=== PATIENT | female | born 1985 | race Caucasian/White ===

== ENCOUNTER → 2016-06-28 | Outpatient (CLI) | payer BC ==
--- NOTE | 2016-06-28 14:52 | MAMMOGRAPHY REPORT ---
UNILATERAL LEFT DIGITAL DIAGNOSTIC MAMMOGRAM TOMOSYNTHESIS WITH CAD AND TARGETED LEFT ULTRASOUND: CLINICAL HISTORY: The patient reports a palpable lump in her left breast. She had some associated t enderness but that has resolved. TECHNIQUE: Breast tomosynthesis in addition to standard 2D mammography was performed. Current study was also evaluated with a Computer Aided Detection (CAD) system. Left CC and MLO 2-D and tomosynth esis images were obtained. COMPARISON: No prior exams were available for comparison. BREAST COMPOSITION: The tissue of the left breast is heterogeneously dense, which may obscure small masses. FINDINGS: A triangle marker mullins the site of the palpable lump in the left upper outer quadrant. At the site of the palpable lump there is an oval circumscribed 8 mm mass, which has a fat density c entral portion and has the appearance of an intramammary lymph node. Another intramammary lymph nod e is seen more superiorly and posteriorly measuring 4 mm. The remainder of the left breast is negat jaskaran, without suspicious masses, calcifications, or areas of architectural distortion noted. Targeted ultrasound was performed of the area of the palpable lump pointed out by the patient, in th e left breast at approximately 2:30, 5 cm from the nipple. At the site of the palpable lump there i s an oval circumscribed 7 x 4 x 5 mm mass, which has an echogenic fatty hilum and hypoechoic periphe ral cortex. This corresponds with the mammographic mass and is benign and compatible with an intram ammary lymph node. IMPRESSION: ACR BI-RADS CATEGORY 2: BENIGN, TARGETED ULTRASOUND ACR BI-RADS CATEGORY 2: BENIGN The palpable lump corresponds with a morphologically normal intramammary lymph node in the left antione st at 2:30. There is no mammographic or targeted sonographic evidence of malignancy. Recommend cli nical follow-up. The patient has been verbally notified of the results. Approximately 10% of breast cancers are not detected with mammography. A negative mammographic repor t should not delay biopsy if a clinically suggestive mass is present. Manjula Denis M.D. /:06/28/2016 12:21:26 Nuclear Station Operator: Heather Pedersen, [facility] letter sent: Normal 1/2 BI-RADS Code: ACR BI-RADS Category 2: Benign Ultrasound BI-RADS: ACR BI-RADS Category 2: Benign
== END | disposition home or self-care (01) ==
LOC: C.MAMM 11:10
PROVIDERS: ATTEND Obstetrics & Gynecology
DX: N63 Unspecified lump in breast (principal)

== ENCOUNTER → 2016-10-12 | Outpatient (CLI) | payer BC | END | disposition home or self-care (01) | LOC: C.LAB1850 10:24 | PROVIDERS: ATTEND Obstetrics & Gynecology | DX: O09.00 Supervision of pregnancy with history of infertility, unspecified trimester (principal); Z3A.00 Weeks of gestation of pregnancy not specified ==

== ENCOUNTER → 2016-10-15 | Outpatient (CLI) | payer BC | END | disposition home or self-care (01) | LOC: C.LAB1850 10:19 | PROVIDERS: ATTEND Obstetrics & Gynecology | DX: E03.9 Hypothyroidism, unspecified (principal); O09.00 Supervision of pregnancy with history of infertility, unspecified trimester ==

== ENCOUNTER → 2016-10-30 | Outpatient (CLI) | payer BC ==
[2016-10-30 13:36] LABS: URINE APPEARANCE CLEAR (CLEAR); URINE BILIRUBIN NEG (NEG); URINE COLOR YELLOW; URINE NITRITE NEG (NEG); URINE PH 7.5 (4.5-7.5); URINE SPECIFIC GRAVITY 1.005 (1.000-1.030); UROBILINOGEN NEG (NEG)
[2016-10-30 13:42] LABS: MANUAL MICROSCOPIC REQUIRED? NO; REVIEW REQ? NO
== END | disposition home or self-care (01) ==
LOC: C.LABSPEC 12:59
PROVIDERS: ATTEND Obstetrics & Gynecology
DX: O09.01 Supervision of pregnancy with history of infertility, first trimester (principal)

== ENCOUNTER → 2016-11-06 | Outpatient (CLI) | payer BC ==
[2016-11-06 17:18] LABS: BASO % 0.8 %; BASO ABS # 0.06 K/uL (0-0.2); COMPLETE YES; EOS % 2.6 %; HEMATOCRIT 36.7 % (37-47); IG% 0.3 %; LYMPH % 31.9 %; LYMPH ABS # 2.46 K/uL (1.2-3.4); MEAN CELL VOLUME 89.7 fL (80-100); MEAN CORPUSCULAR HEMOGLOBIN 30.8 pg (25-34); MEAN CORPUSCULAR HGB CONC 34.3 g/dl (32-36); MEAN PLATELET VOLUME 10.4 fL (7.4-10.4); MONO % 8.8 %; NEUT % 55.6 %; PLATELET COUNT 248 K/uL (130-400); RED BLOOD COUNT 4.09 M/uL (4.2-5.4)
[2016-11-06 17:59] LABS: THYROID STIMULATING HORMONE 2.11 uIu/ml (0.300-4.500)
== END | disposition home or self-care (01) ==
LOC: C.LAB1850 16:08
PROVIDERS: ATTEND Obstetrics & Gynecology
DX: O09.01 Supervision of pregnancy with history of infertility, first trimester (principal); Z3A.00 Weeks of gestation of pregnancy not specified

== ENCOUNTER → 2016-11-06 | Outpatient (CLI) | payer BC ==
[2016-11-09 13:59] LABS: CHLAMYDIA TRACH RNA*** NOT DETECTED (NOT DETECTED); GC (NEIS GONORRHOEAE)RNA** NOT DETECTED (NOT DETECTED)
== END | disposition home or self-care (01) ==
LOC: C.LABSPEC 17:44
PROVIDERS: ATTEND Obstetrics & Gynecology
DX: O09.01 Supervision of pregnancy with history of infertility, first trimester (principal); Z3A.00 Weeks of gestation of pregnancy not specified

== ENCOUNTER → 2016-12-05 | Outpatient (CLI) | payer BC ==
[2016-12-05 18:31] LABS: THYROID STIMULATING HORMONE 2.5 uIu/ml (0.300-4.500)
== END | disposition home or self-care (01) ==
LOC: C.LAB1850 16:03
PROVIDERS: ATTEND Obstetrics & Gynecology
DX: O99.281 Endocrine, nutritional and metabolic diseases complicating pregnancy, first trimester (principal)

== ENCOUNTER → 2017-01-03 | Outpatient (CLI) | payer BC ==
[2017-01-03 16:58] LABS: GTGD 50 Grams
[2017-01-03 17:26] LABS: THYROID STIMULATING HORMONE 2.13 uIu/ml (0.300-4.500)
== END | disposition home or self-care (01) ==
LOC: C.LAB1850 14:51
PROVIDERS: ATTEND Obstetrics & Gynecology
DX: O99.282 Endocrine, nutritional and metabolic diseases complicating pregnancy, second trimester (principal); O09.02 Supervision of pregnancy with history of infertility, second trimester; Z3A.00 Weeks of gestation of pregnancy not specified

== ENCOUNTER → 2017-02-01 | Outpatient (CLI) | payer BC ==
[2017-02-01 13:45] LABS: THYROID STIMULATING HORMONE 1.38 uIu/ml (0.300-4.500)
== END | disposition home or self-care (01) ==
LOC: C.LAB1850 12:11
PROVIDERS: ATTEND Obstetrics & Gynecology
DX: O99.282 Endocrine, nutritional and metabolic diseases complicating pregnancy, second trimester (principal); Z3A.00 Weeks of gestation of pregnancy not specified

== ENCOUNTER → 2017-02-25 | Outpatient (CLI) | payer BC ==
[2017-02-25 18:03] LABS: THYROID STIMULATING HORMONE 2.16 uIu/ml (0.300-4.500)
== END | disposition home or self-care (01) ==
LOC: C.LAB1850 16:06
PROVIDERS: ATTEND Obstetrics & Gynecology
DX: O09.01 Supervision of pregnancy with history of infertility, first trimester (principal)

== ENCOUNTER → 2017-03-04 | Outpatient (CLI) | payer BC | END | disposition home or self-care (01) | LOC: C.PAPS 08:26 | PROVIDERS: ATTEND Obstetrics & Gynecology | DX: N87.1 Moderate cervical dysplasia (principal) ==

== ENCOUNTER → 2017-03-25 | Outpatient (CLI) | payer BC ==
[2017-03-25 17:27] LABS: HEMATOCRIT 35.8 % (37-47)
[2017-03-25 18:05] LABS: THYROID STIMULATING HORMONE 1.86 uIu/ml (0.300-4.500)
[2017-03-25 18:14] LABS: GTGD 50 Grams
[2017-03-25 19:17] LABS: URINE APPEARANCE CLEAR (CLEAR); URINE BILIRUBIN NEG (NEG); URINE COLOR YELLOW; URINE NITRITE NEG (NEG); URINE PH 6.5 (4.5-7.5); URINE SPECIFIC GRAVITY 1.008 (1.000-1.030); UROBILINOGEN NEG (NEG)
[2017-03-25 19:27] LABS: MANUAL MICROSCOPIC REQUIRED? YES; REVIEW REQ? NO
[2017-03-25 19:46] LABS: URINE BACTERIA 2+ (NEG); URINE RBC 0-4 /hpf (0-4)
== END | disposition home or self-care (01) ==
LOC: C.LAB1850 16:03
PROVIDERS: ATTEND Obstetrics & Gynecology
DX: O09.03 Supervision of pregnancy with history of infertility, third trimester (principal); O99.282 Endocrine, nutritional and metabolic diseases complicating pregnancy, second trimester

== ENCOUNTER → 2017-04-22 | Outpatient (CLI) | payer BC ==
[2017-04-22 18:08] LABS: THYROID STIMULATING HORMONE 2.59 uIu/ml (0.300-4.500)
== END | disposition home or self-care (01) ==
LOC: C.LAB1850 16:40
PROVIDERS: ATTEND Obstetrics & Gynecology
DX: O09.02 Supervision of pregnancy with history of infertility, second trimester (principal); Z3A.00 Weeks of gestation of pregnancy not specified

== ENCOUNTER → 2017-05-20 | Outpatient (CLI) | payer BC | END | disposition home or self-care (01) | LOC: C.LABSPEC 17:43 | PROVIDERS: ATTEND Obstetrics & Gynecology | DX: O99.283 Endocrine, nutritional and metabolic diseases complicating pregnancy, third trimester (principal); Z3A.00 Weeks of gestation of pregnancy not specified ==

== ENCOUNTER → 2017-05-20 | Outpatient (CLI) | payer BC | END | disposition home or self-care (01) | LOC: C.LAB1850 17:07 | PROVIDERS: ATTEND Obstetrics & Gynecology | DX: O99.283 Endocrine, nutritional and metabolic diseases complicating pregnancy, third trimester (principal); E03.9 Hypothyroidism, unspecified; Z3A.00 Weeks of gestation of pregnancy not specified ==

== ENCOUNTER 2017-06-20 23:50 | Inpatient (IN) | payer BC ==
[~2017-06-20] VITALS: Ht 165.1 cm; Wt 68.0 kg
[2017-06-21] MEDS ORDERED: LACTATED RINGER'S 1000ML 1,000 ML IV SCH (00:12)
[2017-06-21] MEDS ORDERED: LACTATED RINGER'S 1000ML 1,000 ML IV PRN (00:12)
[2017-06-21] MEDS ORDERED: LACTATED RINGER'S 1000ML 500 ML IV PRN ×2 (00:13→07:21)
[2017-06-21] MEDS ORDERED: OXYTOCIN 30 UNITS/500ML NSS IV PRN ×2 (00:15→13:15)
[2017-06-21] MEDS ORDERED: LEVO25TA PO (00:29)
[2017-06-21] MEDS ORDERED: PRENTAB26 PO (00:29)
[2017-06-21 00:31] VITALS: Ht 165.1 cm; Wt 68.0 kg
[2017-06-21 00:45] LABS: HEMATOCRIT 39.3 % (37-47); HEMOGLOBIN 13.7 g/dL (12.0-16.0); MEAN CELL VOLUME 93.1 fL (80-100); MEAN CORPUSCULAR HEMOGLOBIN 32.5 pg (25-34); MEAN CORPUSCULAR HGB CONC 34.9 g/dl (32-36); MEAN PLATELET VOLUME 11.1 fL (7.4-10.4); PLATELET COUNT 205 K/uL (130-400); RED CELL DISTRIBUTION WIDTH CV 12.5 % (11.5-14.5); RED CELL DISTRIBUTION WIDTH SD 42.3 fL (36.4-46.3); WHITE BLOOD COUNT 11.07 K/uL (4.8-10.8)
[2017-06-21] MEDS ORDERED: EpHEDrine SULFATE INJ 50 MG/ML AMP ONE (06:12)
[2017-06-21] MEDS ORDERED: BUPIVACAINE 0.25% 30 ML VIAL ONE ×2 (06:12→08:11)
[2017-06-21] MEDS ORDERED: FENTANYL 2MCG/ML ROPIV 1.25MG/ML 100ML BAG EPI ONE (06:13)
[2017-06-21] MEDS ORDERED: FENTANYL CITRATE INJ 50 MCG/1 ML 2 ML VIAL ONE ×3 (06:13→16:12)
[2017-06-21] MEDS ORDERED: EpHEDrine SULFATE INJ 50 MG/ML AMP IV PRN (07:30)
[2017-06-21] MEDS ORDERED: NALOXONE HCL INJ 0.4 MG/1 ML VIAL/CARP IV PRN (07:30)
[2017-06-21] MEDS ORDERED: FENTANYL 2MCG/ML ROPIV 1.25MG/ML 100ML BAG EPI PRN (07:30)
--- NOTE | 2017-06-21 13:14 | Vaginal Delivery Summary ---
Vaginal Delivery Summary The patient dilated to complete and pushed for more than 3 hours to deliver a viable male infant Apgars 8 and 9 over small second-degree perineal laceration. Mouth and nose bulb suctioned at the perineum and loose nuchal cord 1 reduced. Terminal meconium noted. Shoulders and body delivered with ease. vigorous at . Cord clamped at 37 seconds of life. to maternal abdomen where cord doubly clamped and then cut. Cord blood and cord gases obtained. Placenta delivered spontaneously and intact 3 vessel cord. Hemostasis achieved with dilute Pitocin and uterine massage and bimanual massage. Bladder drained under sterile conditions for 300 cc's. Cervix and sulci intact. She is repaired in the usual fashion using 3-0 Vicryl. EBL 300 cc' s. Mother and baby stable in recovery.
[2017-06-21] MEDS ORDERED: MISOPROSTOL 200 MCG TAB PR SCH (13:15)
[2017-06-21] MEDS ORDERED: OXYTOCIN INJ 10 UNITS/ML VIAL IM ONE (13:15)
[2017-06-21] MEDS ORDERED: HYDROCORTISONE ACETATE 25 MG SUPP PR PRN (13:15)
[2017-06-21] MEDS ORDERED: BENZOCAINE 20% AER SPR 82.5 GM CAN EXT PRN (13:15)
[2017-06-21] MEDS ORDERED: OXYCODONE/ACETAMINOPHEN 5-325 TAB PO PRN (13:15)
[2017-06-21] MEDS ORDERED: METHYLERGONOVINE MALEATE 0.2 MG/ML AMP IM ONE (13:15)
[2017-06-21] MEDS ORDERED: LANOLIN OINT EXT PRN (13:15)
[2017-06-21] MEDS ORDERED: CARBOPROST TROMETHAMINE 250 MCG/ML AMP IM ONE (13:15)
[2017-06-21] MEDS ORDERED: SUPERCREAM 0.870 % 15GM JAR EXT PRN (13:15)
[2017-06-21] MEDS ORDERED: ACETAMINOPHEN 325 MG TAB PO PRN (13:15)
[2017-06-21] MEDS ORDERED: DIPHTHERIA/TETANUS/PERTUSSIS 0.5 ML SYR/VIAL IM. ONE (13:15)
[2017-06-21] MEDS ORDERED: OXYTOCIN INJ 20 UNITS in LACTATED RINGER'S 1000ML 1,000 ML IV SCH (13:30)
[2017-06-21] MEDS: IBUPROFEN 600 MG TAB PO PRN ×2 (14:26→21:57)
--- NOTE | 2017-06-21 14:38 | Anesthesia Procedure Note ---
Anesthesia Epidural Removal Nt Date & Time Jun 21, 2017 at 14:38 Notes Mental Status: alert / awake / arousable, participated in evaluation Nausea / Vomiting: adequately controlled Pain: adequately controlled Airway Patency, RR, SpO2: stable & adequate BP & HR: stable & adequate Hydration State: stable & adequate Neuraxial Anesthesia: was administered Anesthetic Complications: no major complications apparent, pt satisfied with anesthetic care Epidural: removed without complications, with tip intact
[2017-06-21] MEDS ORDERED: MISOPROSTOL 200 MCG TAB ONE (15:58)
[2017-06-21] MEDS ORDERED: BUTORPHANOL TARTRATE 1 MG/ML VIAL ONE (16:04)
[2017-06-21] MEDS ORDERED: MIDAZOLAM HCL 1 MG/ML 2ML VIAL ONE ×2 (16:12→17:06)
[2017-06-21] MEDS ORDERED: PROPOFOL IV EMULSION 10 MG/ML 20 ML VIAL IV ONE (16:12)
[2017-06-21 16:41] LABS: HEMATOCRIT 33.5 % (37-47); HEMOGLOBIN 11.4 g/dL (12.0-16.0)
[2017-06-21] MEDS ORDERED: ONDANSETRON INJ 2 MG/ML 2 ML VIAL IV PRN (16:45)
[2017-06-21] MEDS ORDERED: FENTANYL CITRATE INJ 50 MCG/1 ML 2 ML VIAL IV PRN (16:45)
[2017-06-21] MEDS ORDERED: ATROPINE SULFATE 0.1 MG/ML 5ML SYR IV PRN (16:45)
[2017-06-21 16:52] LABS: ALBUMIN 2.2 gm/dl (3.4-5.0); CREATININE 0.71 mg/dl (0.60-1.20); POTASSIUM 3.8 mmol/L (3.5-5.1)
[2017-06-21 16:58] LABS: TOTAL PROTEIN 4.9 gm/dl (6.4-8.2)
[2017-06-21] MEDS ORDERED: OXYTOCIN INJ 10 UNITS/ML VIAL ONE (16:59)
[2017-06-21] MEDS ORDERED: ONDANSETRON INJ 2 MG/ML 2 ML VIAL ONE (16:59)
[2017-06-21] MEDS ORDERED: SUCCINYLCHOLINE CHLORIDE 20 MG/ML 10 ML VIAL IV ONE (16:59)
[2017-06-21] MEDS ORDERED: SODIUM CHLORIDE 0.9% INJ 10 ML VIAL ONE (16:59)
[2017-06-21] MEDS ORDERED: CEFAZOLIN SOD 1 GM VIAL ONE (16:59)
[2017-06-21] MEDS ORDERED: METOCLOPRAMIDE HCL INJ 5 MG/ML 2 ML VIAL ONE (17:16)
--- NOTE | 2017-06-21 17:43 | [facility] Post Operative Brief Note ---
Immediate Operative Summary Operative Date Jun 21, 2017. Pre-Operative Diagnosis POST HEMORRHAGE; RETAINED PLACENTA Post-Operative Diagnosis SAME WITH REMOVAL OF PLACENTAL FRAGMENTS Procedure(s) Performed EXAM UNDER ANESTHESIA CURETTAGE Surgeon DR MILAD AJ Home Support Worker Surgeon(s) DR NUNO Estimated Blood Loss 500 CC Findings Consistent with Post-Op Diagnosis Fluids (cc crystalloids) 1600 Specimens none Drains arriaga Anesthesia Type General Complication(s) none Disposition Accompanied Pt To Recover: yes Disposition: L&D
--- NOTE | 2017-06-21 18:18 | OPERATIVE REPORT ---
DATE OF OPERATION: 06/21/2017 PREOPERATIVE DIAGNOSES: 1. hemorrhage. 2. Retained placental tissue. POSTOPERATIVE DIAGNOSES: Same. PROCEDURES: 1. Exam under anesthesia. 2. uterine curettage. SURGEON: Cherie Rizo MD NURSE EMERGENCY: Glen Morel MD IV FLUIDS: 1600 mL. EBL: 500 mL. URINE OUTPUT: 350 mL. ANESTHESIA: General. FINDINGS: Uterus with contracted fundus at exam under anesthesia; however, remaining retained products of conception noted at the anterior mid uterine segment. DESCRIPTION OF PROCEDURE: The patient was brought to the operating room and identified. She was given general anesthesia and placed in dorsolithotomy position. SCDs had been applied and she was given 2gm ancef intravenously. A arriaga catheter was placed under sterile conditions. An exam under anesthesia took place. Uterus with contracted at fundus at exam under anesthesia; however, remaining retained products of conception noted at the anterior mid uterine segment. Swept with operators hand and then cervix visualized with retractors, grasped on its anterior lip with ring forceps, and Banjo curette used to curettage the uterus further. Uterus again explored to remove any remaining tissue or products--minimal return of tissue. Extensive exploration of the cervix and sulci showed all tissue to be intact. Again, fundus quite well contracted, lower uterine segment less contracted.The patient was given Hemabate and was receiving dilute IV Pitocin. Concern for continued bleeding noted and therefore Bakri balloon attempted x3 attempts to be placed; however, not able to be placed at the fundus. Remained in the lower uterine segment. Reevaluation showed no blood coming from the channel of the Bakri balloon. Uterine fundus was also remaining stable as far as firm nature and location in relationship to umbilicus. Balloon was able to be visualized vaginally and therefore ultimately removed. Bedside ultrasound used showing fairly contracted uterus and vaginal exam was similar. Previously repaired perineal laceration required 2 interrupted sutures of 3-0 Vicryl to reapproximate due to trauma to the previous incision site from multiple explorations with the liner machine operator helper's hand. The bleeding was watched. No significant bleeding was noted. At this point the procedure was terminated. The patient was awoken from anesthesia and transferred to the recovery room in stable condition. I attest to the content of the Intraoperative Record and any orders documented therein. Any exceptions are noted below. MYLES
[2017-06-21 18:49] LABS: HEMATOCRIT 25.9 % (37-47)
[2017-06-21] MEDS: DOCUSATE SODIUM 100 MG CAP PO SCH (20:00)
--- NOTE | 2017-06-21 21:36 | Anesthesiology Progress Note ---
Anesthesia Post Op Note Date & Time Jun 21, 2017 at 21:35 Notes Mental Status: alert / awake / arousable, participated in evaluation Pt Amnestic to Procedure: Yes Nausea / Vomiting: adequately controlled Pain: adequately controlled Airway Patency, RR, SpO2: stable & adequate BP & HR: stable & adequate Hydration State: stable & adequate Anesthetic Complications: no major complications apparent
[2017-06-21 22:07] VITALS: BP 129/87; PULSE 85; TEMP 36.9; O2SAT 97
[2017-06-21 23:30] VITALS: BP 110/70; PULSE 88; TEMP 36.9
[2017-06-22 00:51] LABS: HEMATOCRIT 22.1 % (37-47); HEMOGLOBIN 7.7 g/dL (12.0-16.0); MEAN CELL VOLUME 93.2 fL (80-100); MEAN CORPUSCULAR HEMOGLOBIN 32.5 pg (25-34); MEAN CORPUSCULAR HGB CONC 34.8 g/dl (32-36); MEAN PLATELET VOLUME 10.8 fL (7.4-10.4); PLATELET COUNT 149 K/uL (130-400); RED CELL DISTRIBUTION WIDTH CV 12.6 % (11.5-14.5); RED CELL DISTRIBUTION WIDTH SD 42.7 fL (36.4-46.3); WHITE BLOOD COUNT 15.81 K/uL (4.8-10.8)
[2017-06-22] MEDS: CEFAZOLIN IV 2,000 MG in SYRINGE 0 ML IV SCH ×3 (01:00→16:59)
[2017-06-22] MEDS ORDERED: CEFAZOLIN IV 2,000 MG in DEXTROSE 5% 50ML 50 ML IV SCH (01:00)
[2017-06-22 01:44] LABS: BASO % 0.1 %; BASO ABS # 0.02 K/uL (0-0.2); EOS % 0.6 %; IG# 0.06 K/uL (0.00-0.02); LYMPH % 14.6 %; LYMPH ABS # 2.31 K/uL (1.2-3.4); MONO % 8.3 %; MONO ABS # 1.31 K/uL (0.11-0.59); NEUT ABS # 12.01 K/uL (1.4-6.5)
[2017-06-22 03:20] VITALS: BP 129/85; PULSE 87; TEMP 37; O2SAT 98
[2017-06-22] MEDS: IBUPROFEN 600 MG TAB PO PRN ×4 (03:24→16:59)
--- NOTE | 2017-06-22 06:43 | OB/GYN Progress Note ---
EMBROIDERY DESIGNER Progress Note Date of Service Jun 22, 2017. Subjective conversation w/ patient, conversation w/ family, physical exam, chart review, lab review Ambulation: limited ambulation Voiding: voiding difficulty Passing Gas: Yes Lochia: Moderate Feeding Type: Breast Feeding Pain: abdominal and pelvic tenderness, controlling with motrin and percocet Review of Systems Constitutional: No fever, No chills Respiratory: No cough, No shortness of breath Cardiac: No chest pain Abdomen: + pain, No nausea, No vomiting Female : No dysuria Objective Vital Signs Date Time Temp Pulse Resp B/P (MAP) Pulse Ox O2 Delivery O2 Flow Rate FiO2 06/22/17 03:20 37.0 87 20 129/85 (100) 98 Room Air 06/21/17 23:30 36.9 88 18 110/70 (83) Room Air 06/21/17 23:30 Room Air 06/21/17 22:07 36.9 85 16 129/87 (101) 97 Room Air Physical Exam General Appearance: WELL-APPEARING, WD/WN, NO APPARENT DISTRESS Respiratory/Chest: lungs clear, normal breath sounds Cardiovascular: regular rate, rhythm Abdomen: soft, + tenderness Fundus: Firm, Tender Extremities: non-tender Laboratory Results Last 24 Hours Test 06/21/17 16:12 06/21/17 18:41 06/22/17 00:19 Hemoglobin 11.4 g/dL 9.0 g/dL 7.7 g/dL Hematocrit 33.5 % 25.9 % 22.1 % Sodium Level 135 mmol/L Potassium Level 3.8 mmol/L Chloride Level 106 mmol/L Carbon Dioxide Level 20 mmol/L Anion Gap 9.0 mmol/L Blood Urea Nitrogen 9 mg/dl Creatinine 0.71 mg/dl Est Creatinine Clear Calc Drug Dose 103.3 ml/min Estimated GFR () 131.5 Estimated GFR (Non- 113.5 BUN/Creatinine Ratio 12.2 Random Glucose 98 mg/dl Calcium Level 8.0 mg/dl Total Bilirubin 0.8 mg/dl Aspartate Amino Transf (AST/SGOT) 34 U/L Alanine Aminotransferase (ALT/SGPT) 16 U/L Alkaline Phosphatase 131 U/L Total Protein 4.9 gm/dl Albumin 2.2 gm/dl Globulin 2.7 gm/dl Albumin/Globulin Ratio 0.8 White Blood Count 15.81 K/uL Red Blood Count 2.37 M/uL Mean Corpuscular Volume 93.2 fL Mean Corpuscular Hemoglobin 32.5 pg Mean Corpuscular Hemoglobin Concent 34.8 g/dl Platelet Count 149 K/uL Mean Platelet Volume 10.8 fL Neutrophils (%) (Auto) 76.0 % Lymphocytes (%) (Auto) 14.6 % Monocytes (%) (Auto) 8.3 % Eosinophils (%) (Auto) 0.6 % Basophils (%) (Auto) 0.1 % Neutrophils # (Auto) 12.01 K/uL Lymphocytes # (Auto) 2.31 K/uL Monocytes # (Auto) 1.31 K/uL Eosinophils # (Auto) 0.10 K/uL Basophils # (Auto) 0.02 K/uL RDW Standard Deviation 42.7 fL RDW Coefficient of Variation 12.6 % Immature Granulocyte % (Auto) 0.4 % Immature Granulocyte # (Auto) 0.06 K/uL Red Blood Cell Morphology Unremarkable Assessment and Plan Post- Day Number: 1 Continue Routine Care: 32 yo now 1 PPD1, complicated by hemorrhage. A+/GBS-/Ri Pt is fatigued but otherwise denies sx of severe anemia; no cp, sob, dizziness. Patient Hgb was 7.7 today, 11.4 at admission. Patient has been up ambulating. She also reports normal appetite. 1. Recovery after vaginal delivery; continue pp care; ambulate, control pain, monitor lochia, support breast feeding 2. Anemia; Not severely symptomatic. Will monitor throughout day, discuss further treatment options on attending rounds. Patient has consented for transfusion if needed. 3. Post void residual; patient is retaining urine (>661 on bladder scan). Administer arriaga today, monitor i/o and color of urine. 4. Post abx--last dose Anceph this evening 17:00. Resident Physician Supervision Note: I interviewed and examined the patient. Discussed with Dr. Barry and agree with findings and plan as documented in the note. Any exceptions or clarifications are listed here: Patient feels well, no dizzy or lightheadedness , last hgb 7.7. still getting 24h ancef due to multiple uterine exams. no fever. she had incontinence with large volume void and pvr is 600 therefore arriaga placed. ff but to left and a umbilicus, breast feeding, routine care. Documented By: Cherie Rizo
[2017-06-22] MEDS: LEVOTHYROXINE 25 MCG TAB PO SCH (07:32)
[2017-06-22 08:45] VITALS: BP 117/78; PULSE 88; TEMP 36.5; O2SAT 97
[2017-06-22] MEDS: DOCUSATE SODIUM 100 MG CAP PO SCH ×2 (09:12→20:00)
[2017-06-22 11:55] VITALS: BP 119/80; PULSE 95; TEMP 37.2; O2SAT 98
[2017-06-22 15:45] VITALS: BP 128/102; PULSE 88; TEMP 37
[2017-06-23] VITALS: BP 111/67; PULSE 87; TEMP 36.5
[2017-06-23] MEDS: IBUPROFEN 600 MG TAB PO PRN ×3 (01:17→15:42)
[2017-06-23 07:14] LABS: HEMOGLOBIN 7.1 g/dL (12.0-16.0)
--- NOTE | 2017-06-23 07:30 | Progress Note ---
Subjective Jun 23, 2017. Subjective conversation w/ patient, physical exam, lab review Voiding: no voiding problems, voiding difficulty Passing Gas: Yes Diet Tolerance: Regular Diet Objective Vital Signs Date Time Temp Pulse Resp B/P (MAP) Pulse Ox O2 Delivery O2 Flow Rate FiO2 06/23/17 00:00 36.5 87 18 111/67 (82) Room Air 06/23/17 00:00 Room Air 06/22/17 15:45 37.0 88 16 128/102 (111) Room Air 06/22/17 15:45 Room Air 06/22/17 11:55 37.2 95 20 119/80 (93) 98 Room Air 06/22/17 08:45 97 Room Air 06/22/17 08:45 36.5 88 20 117/78 (91) 97 Room Air Physical Exam General Appearance: WELL-APPEARING Abdomen: non tender Fundus: Firm Extremities: no calf tenderness Laboratory Results Last 24 Hours Test 06/23/17 06:53 Hemoglobin 7.1 g/dL Hematocrit 21.0 % Assessment and Plan Post- Day#: 2 Continue Routine Care: Hemoglobin is 7.1 patient is able to ambulate does not feel lightheaded and did review the option of a blood transfusion I believe the patient can be discharged home without transfusion taking ferrous sulfate twice a day we discussed stool softeners as well. Patient is otherwise well reviewed discharge instructions
--- NOTE | 2017-06-23 07:31 | Discharge Instructions ---
Discharge Instructions Date of Service Jun 23, 2017. Admission Reason for Admission: LABOR Discharge Discharge Diagnosis / Problem: Discharge Goals Goal(s): Routine recovery after delivery Activity Recommendations Activity Limitations: per Instructions/Follow-up section . Instructions / Follow-Up Instructions / Follow-Up ACTIVITY RECOMMENDATIONS: * Gradual return to full activity over the next 2-3 weeks. * No lifting - nothing heavier than baby over the next 2-3 weeks. * Do not engage in vigorous exercise, sexual activity or sports until cleared by your physician. * Do not drive or operate any motorized equipment until cleared by your physician. * You may shower/bathe daily. MEDICATIONS: For discomfort or pain, you may use Acetaminophen (Tylenol), Ibuprofen (Advil), or Naproxen (Aleve) following the package directions. For constipation you may use Colace following the package directions. BREAST CARE: If you are not breast feeding: * Wear a supportive bra 24 hours a day for one to two weeks. * Avoid stimulating your breasts and nipples as much as possible during the first few weeks after delivery. * When taking a shower, have the warm water hit your back, not breasts. * When your breasts feel full, apply ice packs. Usually three to four times a day helps ease the discomfort. * Take a mild pain medication (Tylenol / Motrin) when you are uncomfortable. If breast feeding: * Use breast milk to lubricate nipples. Lansinoh cream may be used for sore nipples. You do not need to remove cream prior to breast feeding. If using a different brand of cream, check the label for directions regarding removal of cream prior to nursing. * Wear a supportive bra. * If having problems with breasts or breast feeding, call a tanning consultant or your health care provider. EPISIOTOMY CARE: After delivery, if you have an episiotomy (stitches), the following steps will ease discomfort and aid healing. * For the first 24 hours after delivery, place ice packs next to your episiotomy to help reduce swelling. * After the first 24 hour-period, sitz baths, either portable or in the tub, are suggested. A shower with a shower arm sprayed over the episiotomy may be comforting. * Rocio care should be done after each voiding and bowel movement. Squirt warm water from a plastic bottle over the perineum (region of the body between the anus and urinary opening) and pat dry. * Use Dermoplast to ease discomfort. Shake container. Savage directly over the episiotomy. Place a Tucks on a clean sanitary pad next to your episiotomy. SPECIAL CARE INSTRUCTIONS: When you are discharged from the hospital, it is important for you to follow the instructions listed below: * During the first week at home, you should be able to care for yourself and your baby. In addition, the usual light household activities are encouraged. * Limit your activities to the way you feel. Do not try to clean the house or move furniture. Be sensible. * If you actively engage in sports and have done so up until the time of your delivery, you may resume these activities as soon as you feel able. This may take up to one month or even longer. Use good judgment. * Continue to take your vitamins for at least six weeks after the of your baby. * Your diet need not be limited unless you were on a special diet before your delivery. Breast-feeding mothers need around 2500 calories per day and at least 64-80 ounces of fluid per day (8 to 10 glasses). * You should eat foods from the four major food groups. Crash diets or fad diets are to be avoided. Eating lean meats, fresh fruits and vegetables, low-fat dairy products, high fiber foods and a regular exercise program, will help you get back to your pre- weight without putting your health at risk. * Constipation is sometimes a problem after delivery. Take a mild laxative as needed. If breast feeding, Milk of Magnesia is acceptable to use. You may use a suppository or Fleets enema if no episiotomy. * A daily shower or tub bath is suggested. Be sure to thoroughly and gently dry the perineum. * A bloody vaginal discharge will usually continue until around four weeks post . A small amount of bleeding may continue for as long as six weeks. Vaginal discharge changes from the bright red bleeding after delivery to pink then brownish and finally yellowish-pink before becoming white and disappearing. * Bleeding may increase with activity. Your first period may come in 4-8 weeks. If you are breast feeding, your period may be delayed even longer. * Sumrall (sex) can begin whenever both you and your partner feel comfortable and do not have any form of genital infection. It is recommended that you wait at least six weeks for internal and external healing to occur. If you have questions, please talk to your health care practitioner. A condom should be used to prevent infection and . * Foreplay, gentle intercourse and lubrication is very important the first several times to prevent pain. A water-based lubricant such as K-Y jelly or Astroglide may be used. * If you have RH negative blood and your baby is RH positive, you will receive RHOGAM by injection prior to discharge. The nurse will give you a card to keep with you that has the date and place that you received RHOGAM after delivery. * During your care, you had a Rubella screen done to check for the presence of rubella antibodies in your blood. If your test was negative, you will receive a Rubella vaccine prior to discharge. This vaccine may cause a fever, soreness at the injection site and flu-like symptoms. If these symptoms persist, notify your health care practitioner. is not advised for one month after a Rubella vaccine. * Verbalizes understanding of car seat law as reviewed with patient nursing. * Car Seat hand-out given and reviewed with patient by nursing. * Shaken baby information reviewed with patient by nursing. Call you doctor if: * Heavy bleeding (saturating several pads an hour) or passing clots the size of your fist. * A fever >101 degrees F (38.3 degrees C) on two occasions four hours apart and /or chills. * Unusual pain in the pelvic or vaginal areas. * "Baby Blues" lasting longer than two weeks. If you have any questions or concerns, call your health care practitioner at . FOLLOW UP VISIT: * Please call the office at to schedule a 6 week examination. It is important you keep this appointment. It is important for you to make arrangements for either yearly or twice yearly check-ups thereafter. Current Hospital Diet Patient's current hospital diet: Regular OB Diet Discharge Diet Recommended Diet: Regular OB Diet Procedures Procedures Performed: EXAM UNDER ANESTHESIA CURETTAGE Pending Studies Studies pending at discharge: no Medical Emergencies . Who to Call and When: Medical Emergencies: If at any time you feel your situation is an emergency, please call 911 immediately. . Non-Emergent Contact Non-Emergency issues call your: Cardiothoracic Icu Rn . . "Provider Documentation" section prepared by Glen Morel. . VTE Core Measure Inpt VTE Proph given/why not?: Treatment not indicated
[2017-06-23] MEDS ORDERED: FRRS300 PO (07:33)
[2017-06-23] MEDS: LEVOTHYROXINE 25 MCG TAB PO SCH (07:46)
[2017-06-23] MEDS: DOCUSATE SODIUM 100 MG CAP PO SCH (08:54)
[2017-06-23 09:30] VITALS: BP 119/79; PULSE 94; TEMP 37.3
[2017-06-23 12:00] VITALS: BP 120/81; PULSE 97; TEMP 37
[2017-06-23 16:40] VITALS: BP 128/92; PULSE 87; TEMP 36.5
[2017-06-23 18:40] VITALS: BP_DIAS 92; PULSE 87; TEMP 36.5
--- NOTE | 2017-06-26 11:15 | DISCHARGE SUMMARY ---
ADMISSION DIAGNOSES: 1. A 40+ week intrauterine . 2. Spontaneous rupture of membranes. 3. Pitocin augmentation of labor. DISCHARGE DIAGNOSES: 1. Same 2. hemorrhage. 3. Severe anemia. PROCEDURE: 1. Normal spontaneous vaginal delivery. 2. Exam under anesthesia. 3. uterine curettage. BRIEF HISTORY AND HOSPITAL COURSE: A 32-year-old 1, para 0 who presented at 40+ weeks estimated gestational age with spontaneous rupture of membranes and mild irregular contractions. She received Pitocin augmentation and progressed to completely dilated. She delivered via normal spontaneous vaginal delivery and had repair of a small second degree perineal laceration. Her estimated blood loss at that time was 200 mL. The patient was in her recovery when approximately 2 hours from the recovery, I was called due to excessive vaginal bleeding. The patient's exam at the bedside did reveal additional blood and with the uterine sweep additional retained placental fragments. She was given additional uterotonics and was unable to tolerate further exam by the bedside and the decision was made to take her to the operating room for likely uterine curettage under general anesthesia. Uterine curettage took place in the operating room per the operative note and only small remaining tissue was noted. The Bakri balloon was attempted to be placed; however, it was pushed out easily and via an ultrasound by the bedside in the operating room it appeared that the uterus was grace down. The bleeding had decreased. Total estimated blood loss was between 1600 and 1700 mL. Although blood had been called for to be administered, her postop hemoglobin only gradually drifted down from a starting point of 13.7 to a hemoglobin of 7.1 on the day of her discharge. She was tolerating the hemoglobin without any symptoms and therefore no blood transfusions were administered. She did have a post- complication of urinary retention and a Muller catheter was replaced but then discontinued on the day of her discharge and she was able to void without difficulty. She was then able to go home and was to take iron twice a day as well as stool softeners and was given routine instructions and plans for followup. MYLES
== END 2017-06-23 18:40 | disposition home or self-care (01) | DRG 767 ==
LOC: C.OPB 23:50 → C.LD 23:50 → C.OPB 06-21 00:13 → C.LD 06-21 00:13 → C.OBG 06-21 21:39
PROVIDERS: ADMIT Obstetrics & Gynecology; ATTEND Obstetrics & Gynecology
PROC: 10D17Z9 Manual Extraction of Products of Conception, Retained, Via Natural or Artificial Opening (ICD-10-PCS; 2017-06-21)
PROC: 10D17Z9 Manual Extraction of Products of Conception, Retained, Via Natural or Artificial Opening (ICD-10-PCS; 2017-06-21)
PROC: 0KQM0ZZ Repair Perineum Muscle, Open Approach (ICD-10-PCS; principal; 2017-06-21 16:13)
PROC: 10E0XZZ Delivery of Products of Conception, External Approach (ICD-10-PCS; principal; 2017-06-21 16:13)
DX: O48.0 Post-term pregnancy (principal); O72.0 Third-stage hemorrhage; O69.81X0 Labor and delivery complicated by cord around neck, without compression, not applicable or unspecified; O70.1 Second degree perineal laceration during delivery; Z37.0 Single live birth; Z3A.40 40 weeks gestation of pregnancy; O99.284 Endocrine, nutritional and metabolic diseases complicating childbirth; O99.02 Anemia complicating childbirth; O99.89 Other specified diseases and conditions complicating pregnancy, childbirth and the puerperium; E03.9 Hypothyroidism, unspecified; R39.198 Other difficulties with micturition

== ENCOUNTER → 2017-07-30 | Outpatient (CLI) | payer BC ==
[~2017-07-30] MED LIST: FRRS300 PO; LEVO25TA PO; PRENTAB26 PO
[2017-07-30 15:27] LABS: HEMATOCRIT 38.3 % (37-47); HEMOGLOBIN 12.9 g/dL (12.0-16.0)
== END | disposition home or self-care (01) ==
LOC: C.LAB1850 14:00
PROVIDERS: ATTEND Obstetrics & Gynecology
DX: D64.9 Anemia, unspecified (principal)

== ENCOUNTER → 2017-09-06 | Outpatient (CLI) | payer BC | END | disposition home or self-care (01) | LOC: C.LABSPEC 15:23 | PROVIDERS: ATTEND Urology | DX: R32 Unspecified urinary incontinence (principal); R33.9 Retention of urine, unspecified ==

== ENCOUNTER → 2017-09-13 | Outpatient (CLI) | payer BC ==
--- NOTE | 2017-09-13 12:34 | DIAGNOSTIC IMAGING REPORT ---
(RENAL)RETROPERITON COMP HISTORY: 32 years-old Female R32 [id number] Urinary [id number] acute urinary retention COMPARISON: None available TECHNIQUE: Multiple real-time sonographic images of the kidneys and bladder were obtained assessing grayscale appearance and color flow FINDINGS: Right kidney measures 11.0 cm in length and is unremarkable without renal calculi, hydronephrosis or suspicious mass lesions. The left kidney measures 11.3 cm in length and is also unremarkable without renal calculi, hydronephrosis or suspicious mass lesions. Bilateral ureteral jets are noted. Urinary bladder appears unremarkable. IMPRESSION: Unremarkable sonographic appearance of the bladder and bilateral kidneys. The above report was generated using voice recognition software. It may contain grammatical, syntax or spelling errors. Electronically signed by: Ramon Ulloa M.D. 09/13/2017 12:32 PM Dictated Date/Time: 09/13/2017 12:31 PM
== END | disposition home or self-care (01) ==
LOC: C.ULTR 11:38
PROVIDERS: ATTEND Urology
DX: R33.9 Retention of urine, unspecified (principal); R32 Unspecified urinary incontinence

== ENCOUNTER 2021-06-05 07:58 | Inpatient (IN) ==
[2021-06-05] MEDS ORDERED: OXYTOCIN 30 UNITS/500 ML BAG IV PRN ×3 (08:25→20:12)
[2021-06-05 09:05] LABS: Hematocrit (blood only) 41.3 % (37-47); Hemoglobin 13.8 g/dL (12.0-16.0); Mean Corpuscular Hemoglobin 31.7 pg (25-34); Mean Corpuscular Hgb Conc 33.4 g/dL (32-36); Mean Corpuscular Volume 94.9 fL (80-100); Platelet Count 265 K/uL (130-400); RDW Coefficient of Variation 12.6 % (11.5-14.5); RDW Standard Deviation 43.9 fL (36.4-46.3); Red Blood Count 4.35 M/uL (4.2-5.4); White Blood Count 8.69 K/uL (4.8-10.8)
[2021-06-05] MEDS: LACTATED RINGER'S 1,000 ML IV PRN ×3 (09:05→15:54)
--- NOTE | 2021-06-05 09:13 | History & Physical Report ---
Date of Service June 05, 2021 Assessment & Plan (1) Encounter for induction of labor: Plan: 36-year-old -0-0-1 with medical history notable for AMA, PPH, hypothyroidism here at 41 WGA here for induction for post maturity . * GBS-, RI, Rh+ * Admit to L&D * N.p.o. except sips and chips * Type and screen * As needed Pitocin for IOL * Epidural * IVF: Lactated Ringer's * Continuous electronic heart monitoring * Anticipate Admission and Anticipated Discharge Date Admission Date: June 05, 2021 History of Present Illness Primary Care Provider: Oni Monroy MD Mary Matthews is a 36-year-old female currently at 41 WGA with an SYLVIA 05/29/2021 as determined by LMP who is here for induction for postterm . Her is complicated by history of hemorrhage G2 (Bakri balloon, no transfusion), advanced maternal age, and hypothyroidism. no contractions; no movement; no fluid loss; no bloody show Had regular appointments with OB. Labs: 06/05/2021 Blood type: A+ Antibody screen: neg Hgb: 13.8 Hct: 41.3 WBC: 8.69 Plt: 265 Rubella: Immune RPR: Nonreactive Gonorrhea: Not detected Chlamydia: Not detected HIV: Negative HbSAg: Negative GBS: Negative Other screens: cff-DNA: Declined CF: Declined SMA: Declined Allergies Allergy/AdvReac Type Severity Reaction Status Date / Time No Known Drug Allergies Allergy Verified 05/31/21 10:25 Home Medications Medication Instructions Recorded Confirmed Type levothyroxine 25 mcg tablet 25 mcg PO QAM 09/24/20 06/05/21 History docosahexaenoic acid [ DHA] 1 tab PO 09/29/20 05/31/21 History Patient History Medical History History of chicken pox Hx of breast lump Moderate dysplasia of cervix (spontaneous vaginal delivery) 2018 Surgical History History of dental surgery Status post colposcopy Family History Aunt Breast cancer maternal Mother Hypertension Melanoma Aunt Breast cancer paternal Denies family history of Ovarian cancer Colorectal cancer Social History Smoking Status: Never smoker Hx Alcohol Use: No Hx Substance Use: No Preferred Language: [place] Communication Ability: Effective Veterinary Medical Officer Required: No Beliefs That Will Affect Care: None marital status: marital status details: Kaushal Matthews (36) [phone] Current Living Situation: Spouse Current Living Situation Comment: lives with spouse, son, no pets current occupational status: employed 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 No acute distress. Cardiac: Regular rate and rhythm, no murmurs/rubs/gallops. Respiratory: Clear to auscultation bilaterally a/p, no wheezes/rales/rhonchi. No increased work of breathing. Symmetrical chest rise. No respiratory distress. Pelvic: Dilation 4 cm; Effacement 80%; Station -[address] Rae. Lower Extremities: No lower extremity edema or swelling. No deep calf pain. Amber's negative bilaterally Baseline: 150 bpm Variability: Moderate Accelerations: Yes Decelerations: 1 (early deceleration; briefless than 1 minute) at approximately 8:55 AM. No other decels noted. Results & Data ([facility]) Vital Signs (Past 12 Hours) Vital Signs Pulse Resp BP 06/05/21 09:07 75 121/81 06/05/21 08:30 18 06/05/21 08:12 20 06/05/21 08:07 82 131/94 Supervising Physician Co-Signing Physician Notes Resident Physician Supervision Note: I interviewed and examined the patient. Discussed with Dr. Valentin and agree with findings and plan as documented in the note. Any exceptions or clarifications are listed here: Admit for IOL. Pitocin. OK for epidural. We discussed her h/o PP hemorrhage - type & screen ordered. I called blood bank to make them aware and ensure adequate supply. Documented By: Halina Rae DO Resident Activity Tracking Resident Involvement: Resident Care Provided Care Provided: OB Delivery
[2021-06-05 10:22] LABS: BUN Creatinine Ratio 11.4 (10-20); Bilirubin,Total 0.6 mg/dl (0.2-1); Creatinine Clr Calc Pharmacy 120.4 ml/min; Est GFR (Non-African American) 115.6 ml/min; Potassium 3.6 mmol/L (3.5-5.1)
[2021-06-05 10:24] LABS: Albumin Globulin Ratio 0.8 (0.9-2); Globulin 3.7 gm/dl (2.5-4.0); Total Protein 6.7 gm/dl (6.4-8.2)
[2021-06-05] MEDS ORDERED: BUPIVACAINE 0.25% 30 ML VIAL ONE (10:51)
[2021-06-05] MEDS ORDERED: SODIUM CHLORIDE 0.9% INJ 10 ML VIAL ONE (10:51)
[2021-06-05] MEDS ORDERED: fentaNYL citrate 100 MCG/2 ML VIAL ONE (10:51)
[2021-06-05] MEDS ORDERED: ePHEDrine sulfate 50 MG/ML AMP ONE (10:51)
[2021-06-05] MEDS ORDERED: fentaNYL 2MCG/ML ROPIVACAINE 1.25MG/ML 100 ML BAG EPI ONE (10:52)
[2021-06-05] MEDS ORDERED: ATROPINE SULFATE 0.1 MG/ML 10ML SYR IV PRN (11:02)
[2021-06-05] MEDS ORDERED: ePHEDrine sulfate 50 MG/ML AMP IV PRN ×2 (11:02)
[2021-06-05] MEDS ORDERED: NALOXONE HCL 0.4 MG/1 ML VIAL/CARP IV PRN (11:02)
[2021-06-05] MEDS ORDERED: NALOXONE HCL 1 MG in SODIUM CHLORIDE 0.9% 1000ML 1,000 ML IV PRN (11:02)
[2021-06-05] MEDS ORDERED: NALBUPHINE HCL INJ 10 MG/ML AMP IV PRN (11:02)
[2021-06-05] MEDS ORDERED: diphenhydrAMINE 50 MG/ML VIAL IV PRN (11:02)
--- NOTE | 2021-06-05 11:04 | Anesthesiology Consultation ---
Date of Service June 05, 2021 Assessment & Plan (1) Encounter for pre-operative examination: Chart Review Chart Review: Acceptable Risk for Surgery and Patient NOT seen in Pre Admission Testing Consults Requested none History Height/Weight Height: 5 ft 5 in Weight: 69.853 kg Allergies Allergy/AdvReac Type Severity Reaction Status Date / Time No Known Drug Allergies Allergy Verified 05/31/21 10:25 Medications Home Medications Medication Instructions Recorded Confirmed Last Taken levothyroxine 25 mcg tablet 25 mcg PO QAM 09/24/20 06/05/21 06/05/21 docosahexaenoic acid [ DHA] 1 tab PO 09/29/20 05/31/21 06/03/21 20:00 Active Medications Generic Name Dose Route Start Last Admin Trade Name Freq PRN Reason Stop Dose Admin Oxytocin 30 units in 500 mls @ 3 mls/hr 06/05/21 08:25 06/05/21 10:00 Pitocin IV 06/07/21 08:24 0.18 units/hr .Q24H PRN 3 mls/hr Labor Induction/Augmentation Titration Protocol 0.18 UNITS/HR Lactated Ringer's 1,000 mls @ 125 mls/hr 06/05/21 08:25 06/05/21 10:31 Lr IV 06/07/21 08:24 999 mls/hr .Q8H PRN Infusion L&D Protocol Protocol Past Medical History Medical History History of chicken pox Hx of breast lump Moderate dysplasia of cervix (spontaneous vaginal delivery) 2017 Past Family History Family History Aunt Breast cancer maternal Mother Hypertension Melanoma Aunt Breast cancer paternal Denies family history of Ovarian cancer Colorectal cancer Past Surgical History Surgical History History of dental surgery Status post colposcopy Social History Smoking Status: Never smoker Hx Alcohol Use: No Hx Substance Use: No substance use type: does not use Physical Exam Vital Signs Last Vital Signs Pulse 77 06/05/21 10:29 Resp 18 06/05/21 08:30 BP 128/90 06/05/21 10:29 Testing Laboratory Results 06/05/21 08:48 06/05/21 08:48 Blood Type A Positive 06/05/21 08:48 Antibody Screen NEGATIVE 06/05/21 08:48
[2021-06-05] MEDS: fentaNYL 2MCG/ML ROPIVACAINE 1.25MG/ML 100 ML BAG EPI PRN ×2 (11:22→18:47)
--- NOTE | 2021-06-05 20:10 | Delivery Summary ---
Vaginal Delivery Summary Date of Service June 05, 2021 Vaginal Delivery Summary Vaginal Delivery Summary: Pre-delivery diagnoses: 36yo @ 41 0/7, IOL, h/o PP hemorrhage with G1, AMA Post-delivery diagnoses: same Procedure: spontaneous vaginal delivery Surgeon: Halina Rae DO Complications: none Findings: Viable male . Apgars: 8/9. Weight pending, please see nursery records. Estimated blood loss: 300ml Description of delivery: The patient progressed to complete with epidural anesthesia. She then began to push. She spontaneously vaginally delivered a viable from the cephalic presentation. The head delivered in GLEN position. Nuchal x 1 easily reduced. The anterior shoulder delivered, followed by the posterior shoulder, followed by the body. The baby was placed on mother's abdomen and a spontaneous cry was heard. Delayed cord clamping was employed, and the cord was doubly clamped and cut. Cord blood was obtained. The placenta was delivered spontaneously intact with a 3-vessel cord. The uterus and vagina were swept of clots and debris. IV pitocin was given. The uterus became firm. The cervix, vagina, and perineum were inspected and a 2nd degree laceration was noted, repaired with 3-0 vicryl in standard fashion. Excellent hemostasis was observed. The mother and baby are recovering in stable and good condition in the room. Sponge, needle and instrument counts were correct x 2. DO [facility] [place]
[2021-06-05] MEDS ORDERED: oxyCODONE/ACETAMINOPHEN 5mg/325mg TAB PO PRN (20:12)
[2021-06-05] MEDS ORDERED: BENZOCAINE 20% AER SPR 82.5 GM CAN EXT PRN (20:12)
[2021-06-05] MEDS ORDERED: SUPERCREAM 0.870% 15 GM JAR EXT PRN (20:12)
[2021-06-05] MEDS ORDERED: HYDROCORTISONE ACETATE 25 MG SUPP PR PRN (20:12)
[2021-06-05] MEDS ORDERED: bisacodyL 10 MG SUPP PR PRN (20:12)
[2021-06-05] MEDS ORDERED: DIPHTHERIA/TETANUS/PERTUSSIS 0.5 ML SYR/VIAL IM ONE (20:12)
--- NOTE | 2021-06-05 20:26 | Anesthesia Procedure Note ---
Date of Service June 05, 2021 Anesthesia Post Epidural Note Vital Signs Vital Signs: Temp Pulse Resp BP Pulse Ox 98.2 F 101 H 18 137/91 94 06/05/21 17:30 06/05/21 20:15 06/05/21 20:15 06/05/21 20:15 06/05/21 20:02 Pain Intensity Lower Abdomen: Pain Intensity: 0 Notes Mental Status: alert / awake / arousable and participated in evaluation Nausea / Vomiting: adequately controlled Pain: adequately controlled Airway Patency, RR, SpO2: stable & adequate BP & HR: stable & adequate Hydration State: stable & adequate Neuraxial Anesthesia: was administered and sensory block is resolving Anesthetic Complications: no major complications apparent and Pt Satisfied with anesthetic care Epidural: Removed without complications and With tip intact
[2021-06-05] MEDS: IBUPROFEN 600 MG TAB PO PRN ×2 (20:57→23:48)
[2021-06-05] MEDS: DOCUSATE SODIUM 100 MG CAP PO SCH (20:57)
[2021-06-06] MEDS: ACETAMINOPHEN 325 MG TAB PO PRN ×3 (02:55→23:26)
[2021-06-06] MEDS: IBUPROFEN 600 MG TAB PO PRN ×5 (04:05→21:04)
[2021-06-06] MEDS: LEVOTHYROXINE SODIUM 25 MCG TABLET PO SCH (05:57)
[2021-06-06 06:19] LABS: Hematocrit (blood only) 37.2 % (37-47); Hemoglobin 12.3 g/dL (12.0-16.0)
--- NOTE | 2021-06-06 06:57 | Obstetrical Progress Note ---
Date of Service <Vicente Yao MD - Last Filed: 06/06/21 07:44> June 06, 2021 Assessment & Plan <Vicente Yao MD - Last Filed: 06/06/21 07:44> (1) Encounter for care and examination after delivery: PPD 1: stable, routine management * patient voiding and ambulating without difficulty * pain well controlled on analgesia * tolerating regular diet * * reassess d/c readiness tomorrow <Halina Rae DO - Last Filed: 06/06/21 08:01> (1) Encounter for care and examination after delivery: Subjective <Vicente Yao MD - Last Filed: 06/06/21 07:44> Mary is a 36-year-old who is now PPD 1 following spontaneous vaginal delivery at 41 weeks. Reports feeling well overall this morning. Mild/moderate abdominal cramping & 3/10 pain (down from 6 this morning) well managed on analgesics. Voiding without difficulty. Tolerating meals well and able to ambulate some. Some persistent lochia with some improvement this morning. . Review of Systems Denies fever, chills, sweats Denies shortness of breath, difficulty breathing, chest pain, palpitations, chest pressure. Denies breast pain. Denies dysuria. Denies headache or changes in vision Physical Exam <Vicente Yao MD - Last Filed: 06/06/21 07:44> General: Alert, oriented. No acute distress. Cardiac: Regular rate and rhythm, no murmurs/rubs/gallops. Respiratory: Clear to auscultation bilaterally a/p, no wheezes/rales/rhonchi. No increased work of breathing. Symmetrical chest rise. No respiratory distress. Abdomen: Soft, nontender, nondistended. Bowel sounds present. Uterus: Uterine fundus firm, palpable 1 cm below and to the right of umbilicus. Lower Extremities: No lower extremity edema or swelling. No deep calf pain. Amber's negative bilaterally. Results & Data ([facility]) <Vicente Yao MD - Last Filed: 06/06/21 07:44> Vital Signs (Past 12 Hours) Vital Signs Temp Pulse Pulse Resp BP BP Pulse Ox 06/06/21 04:00 36.5 C 70 18 136/84 06/05/21 23:40 36.6 C 67 18 132/84 97 06/05/21 22:35 74 146/89 H 06/05/21 22:00 83 18 119/83 06/05/21 21:45 83 119/88 06/05/21 21:30 83 18 120/90 06/05/21 21:15 40 L 125/85 06/05/21 21:00 93 H 18 126/86 06/05/21 20:45 96 H 20 124/85 06/05/21 20:30 96 H 20 114/81 06/05/21 20:15 101 H 18 137/91 06/05/21 20:02 105 H 94 06/05/21 20:01 106 H 137/87 06/05/21 20:00 20 06/05/21 19:57 113 H 94 06/05/21 19:52 112 H 94 06/05/21 19:47 130 H 95 06/05/21 19:42 104 H 94 06/05/21 19:37 125 H 94 06/05/21 19:36 122 H 104/65 06/05/21 19:32 104 H 100/62 98 06/05/21 19:27 84 98 06/05/21 19:22 83 95 06/05/21 19:17 89 95 06/05/21 19:15 90 113/78 06/05/21 19:12 92 H 95 06/05/21 19:07 77 97 06/05/21 19:02 96 H 96 06/05/21 19:01 91 H 117/78 06/05/21 19:00 20 06/05/21 18:57 72 95 <Halina Rae DO - Last Filed: 06/06/21 08:01> Co-Signing Physician Notes Resident Physician Supervision Note: I was present with Dr. Yao during the history and exam. I discussed the case with the resident and agree with the findings and plan as documented in the note. Any exceptions or clarifications are listed here: PPD#1 doing well. Plans for DC tomorrow. Documented By: Halina Rae DO Resident Activity Tracking <Vicente Yao MD - Last Filed: 06/06/21 07:44> Resident Involvement: Resident Care Provided Care Provided: OB Delivery
[2021-06-06] MEDS: DOCUSATE SODIUM 100 MG CAP PO SCH ×2 (08:01→21:04)
[2021-06-06] MEDS: PRENATAL VITAMIN 1 TAB PO SCH (08:01)
[2021-06-06] MEDS ORDERED: bisacodyL 5 MG TABEC PO SCH (20:00)
[2021-06-07 00:26] VITALS: O2SAT 97
[2021-06-07] MEDS: IBUPROFEN 600 MG TAB PO PRN ×2 (06:14→10:16)
[2021-06-07] MEDS: LEVOTHYROXINE SODIUM 25 MCG TABLET PO SCH (06:14)
--- NOTE | 2021-06-07 07:26 | Obstetrical Progress Note ---
Date of Service <Vicente Yao MD - Last Filed: 06/07/21 07:25> June 07, 2021 Assessment & Plan <Vicente Yao MD - Last Filed: 06/07/21 07:25> (1) Encounter for care and examination after delivery: PPD 2: stable, routine management * patient voiding and ambulating without difficulty * pain well controlled on analgesia * tolerating regular diet * * anticipate discharge today * 6-week outpatient OB follow-up <Dianna Yoon MD, FACOG - Last Filed: 06/07/21 07:54> (1) Encounter for care and examination after delivery: Subjective <Vicente Yao MD - Last Filed: 06/07/21 07:25> Mary is a 36-year-old who is now PPD 2 following spontaneous vaginal delivery at 41 weeks. Reports feeling well overall this morning. Some abdominal cramping pain well managed on analgesics. Voiding without difficulty. Tolerating meals well and able to ambulate some. Some persistent lochia with some improvement this morning. . Review of Systems Denies fever, chills, sweats Denies shortness of breath, difficulty breathing, chest pain, palpitations, chest pressure. Denies breast pain. Denies dysuria. Denies headache or changes in vision Physical Exam <Vicente Yao MD - Last Filed: 06/07/21 07:25> General: Alert, oriented. No acute distress. Cardiac: Regular rate and rhythm, no murmurs/rubs/gallops. Respiratory: Clear to auscultation bilaterally a/p, no wheezes/rales/rhonchi. No increased work of breathing. Symmetrical chest rise. No respiratory distress. Abdomen: Soft, nontender, nondistended. Bowel sounds present. Uterus: Uterine fundus firm, palpable 1 cm below and to the right of umbilicus. Lower Extremities: No lower extremity edema or swelling. No deep calf pain. Amber's negative bilaterally. Results & Data ([facility]) <Vicente Yao MD - Last Filed: 06/07/21 07:25> Vital Signs (Past 12 Hours) Vital Signs Temp Pulse Pulse Resp BP Pulse Ox 06/06/21 23:20 36.6 C 78 16 133/86 97 06/06/21 19:20 36.6 C 68 16 119/80 98 <Dianna Yoon MD, FACOG - Last Filed: 06/07/21 07:54> Co-Signing Physician Notes Resident Physician Supervision Note: I interviewed and examined the patient. Discussed with Dr. Yao and agree with findings and plan as documented in the note. Any exceptions or clarifications are listed here: [None] Documented By: Dianna Yoon MD, FACOG Resident Activity Tracking <Vicente Yao MD - Last Filed: 06/07/21 07:25> Resident Involvement: Resident Care Provided Care Provided: OB Delivery
[2021-06-07 07:45] VITALS: BP 121/84; PULSE 63; TEMP 97.7
[2021-06-07] MEDS: PRENATAL VITAMIN 1 TAB PO SCH (08:35)
[2021-06-07] MEDS: DOCUSATE SODIUM 100 MG CAP PO SCH (08:36)
[2021-06-07] MEDS: ACETAMINOPHEN 325 MG TAB PO PRN (08:36)
== END 2021-06-07 11:05 | disposition home or self-care (01) | DRG 807 ==
LOC: 4S1 07:58 → 4S2 23:15